=== PATIENT | female | born 1990 | race Caucasian/White ===

== ENCOUNTER 2020-12-24 17:07 | Inpatient (IN) | payer OTHER, SELFPAY ==
[~2020-12-24 17:07] MED LIST: ePHEDrine Sulfate 50 MG/10 ML VIAL ONE
[2020-12-24] MEDS ORDERED: Ibuprofen 800 MG TAB PO PRN (17:40)
[2020-12-24] MEDS ORDERED: Misoprostol 200 MCG TAB PR PRN (17:40)
[2020-12-24] MEDS ORDERED: HYDROcodone/Acetaminophen 5/325 mg Tablet PO PRN (17:40)
[2020-12-24] MEDS ORDERED: Promethazine HCl 25 MG/ML VIAL IM PRN (17:40)
[2020-12-24] MEDS ORDERED: hydrALAZINE 20 MG/ML VIAL SLOW IVP PRN (17:40)
[2020-12-24] MEDS ORDERED: Ondansetron PF 4 MG/2 ML Vial IVP PRN (17:40)
[2020-12-24] MEDS ORDERED: Lidocaine 1% (PF) 30 ML VIAL SC PRN (17:40)
[2020-12-24] MEDS ORDERED: Diphenoxylate HCl/Atropine Tablet PO PRN (17:40)
[2020-12-24] MEDS ORDERED: NS / Oxytocin 40 units/1000ml 1,000 ML IV PRN (17:40)
[2020-12-24] MEDS ORDERED: Carboprost 250 MCG/ML AMP IM PRN (17:40)
[2020-12-24] MEDS ORDERED: Acetaminophen 500 MG TAB PO PRN (17:40)
[2020-12-24] MEDS ORDERED: Methylergonovine 0.2 MG/ML VIAL IM PRN (17:40)
[2020-12-24 17:41] VITALS: BMI 35.5
[2020-12-24] MEDS: Lactated Ringer's 1,000 ML IV SCH (17:50)
[2020-12-24 18:26] LABS: Hemoglobin 11.3 g/dL (12.0-15.5); Mean Corpuscular HGB CONC 34.7 g/dL (32.0-36.0); Mean Corpuscular Hemoglobin 32.4 pg (27.0-33.0); Mean Corpuscular Volume 93.4 fl (81.6-98.3); Mean Platelet Volume 10.6 fl (7.4-10.4); Platelet Count 234 10x3/uL (150-450); RBC Distribution Width 13.1 % (11.5-14.5); Red Blood Cell (RBC) Count 3.49 10x6/uL (3.90-5.03)
[2020-12-24 18:48] LABS: Hep B Surf Ag Non-Reactive S/CO (NonReactive)
[2020-12-24 18:49] LABS: Syphilis Antibody Nonreactive (Nonreactive); Syphilis Antibody Index 0.03 S/CO (<1.00 Non-Reactive)
[2020-12-24] MEDS: Misoprostol 100 MCG TAB VAG SCH ×2 (18:50→22:26)
[2020-12-24 18:58] LABS: HBSAg Index 0.24 S/CO (0-0.99)
[2020-12-25] MEDS: Butorphanol Tartrate 1 MG/ML VIAL SLOW IVP PRN ×2 (00:10→04:11)
[2020-12-25] MEDS: Misoprostol 100 MCG TAB VAG SCH ×4 (04:10→20:51)
[2020-12-25] MEDS ORDERED: Fentanyl 4 mcg/Bup 0.1% Cadd 100 ML ONE ×2 (05:21→12:21)
[2020-12-25] MEDS ORDERED: Promethazine HCl 25 MG/ML VIAL IM PRN ×2 (06:02→19:53)
[2020-12-25] MEDS ORDERED: Acetaminophen 325 MG TAB PO PRN (06:02)
[2020-12-25] MEDS ORDERED: Eucerin (Mineral Oil/Petrolatum,White) 30 gm Jar TOP PRN (06:02)
[2020-12-25] MEDS ORDERED: Naloxone HCl 0.4 mg/ml Vial IVP PRN ×2 (06:02)
[2020-12-25] MEDS ORDERED: ePHEDrine 50 MG/ML VIAL SLOW IVP PRN (06:02)
[2020-12-25] MEDS ORDERED: Ondansetron PF 4 MG/2 ML Vial IVP PRN ×2 (06:02→19:53)
[2020-12-25] MEDS: Lactated Ringer's 1,000 ML IV SCH ×3 (06:02→20:50)
[2020-12-25] MEDS ORDERED: Lactated Ringer's 500 ML IV PRN (06:02)
[2020-12-25] MEDS ORDERED: diphenhydrAMINE 50 MG/ML VIAL IVP PRN (06:02)
[2020-12-25] MEDS ORDERED: Fentanyl 4 mcg/Bupivacaine 0.1% Cassette 100 ML EPIDURAL SCH (06:15)
[2020-12-25] MEDS ORDERED: Communication Order-Pharmacy FS SCH (06:15)
[2020-12-25] MEDS ORDERED: NS w/ Oxytocin 30 units 500 ML ONE ×2 (06:22→16:59)
[2020-12-25] MEDS ORDERED: Benzocaine-Menthol 82.5 ML CAN TOP PRN (19:53)
[2020-12-25] MEDS ORDERED: Lanolin Ointment 7 GM TUBE TOP PRN (19:53)
[2020-12-25] MEDS ORDERED: Zolpidem Tartrate 5 MG TAB PO PRN (19:53)
[2020-12-25] MEDS ORDERED: diphenhydrAMINE 25 MG CAP PO PRN (19:53)
[2020-12-25] MEDS ORDERED: Milk Of Magnesia 30 ML UDCUP PO PRN (19:53)
[2020-12-25] MEDS ORDERED: Preparation H Ointment 28 GM TUBE PR PRN (19:53)
[2020-12-25] MEDS ORDERED: Bisacodyl 10 MG SUPP PR PRN (19:53)
[2020-12-25] MEDS ORDERED: HYDROcodone/Acetaminophen 5/325 mg Tablet PO PRN ×2 (19:53)
[2020-12-25] MEDS ORDERED: hydrALAZINE 20 MG/ML VIAL SLOW IVP PRN (19:53)
[2020-12-25] MEDS ORDERED: NS w/ Oxytocin 30 units 500 ML IV SCH (20:15)
[2020-12-25] MEDS: Docusate Calcium (SURFAK) 240 MG CAP PO SCH (21:29)
[2020-12-25] MEDS: Ibuprofen 800 MG TAB PO SCH (21:30)
[2020-12-26] MEDS: Ibuprofen 800 MG TAB PO SCH ×3 (05:21→21:04)
[2020-12-26] MEDS: Ferrous Sulfate 325 MG TAB PO SCH ×2 (08:17→15:04)
[2020-12-26] MEDS ORDERED: Adacel (T-DAP) 0.5 ML SYRINGE IM ONE (09:00)
[2020-12-26] MEDS: Docusate Calcium (SURFAK) 240 MG CAP PO SCH ×2 (09:02→21:05)
[2020-12-26] MEDS: Prenatal Vitamin 1 TAB PO SCH (09:02)
[2020-12-27] MEDS: Ibuprofen 800 MG TAB PO SCH (06:33)
[2020-12-27 07:38] VITALS: BP 112/67; TEMP 97.8
[2020-12-27] MEDS: Ferrous Sulfate 325 MG TAB PO SCH (08:27)
[2020-12-27] MEDS: Prenatal Vitamin 1 TAB PO SCH (09:04)
[2020-12-27] MEDS: Docusate Calcium (SURFAK) 240 MG CAP PO SCH (09:04)
== END 2020-12-27 13:40 | disposition home or self-care (01) | DRG 807 ==
LOC: CSHLD 17:07 → CSHPP 12-25 20:01
PROVIDERS: ADMIT Student in an Organized Health Care Education/Training Program; ATTEND Student in an Organized Health Care Education/Training Program
PROC: 10D07Z6 Extraction of Products of Conception, Vacuum, Via Natural or Artificial Opening (ICD-10-PCS; principal; 2020-12-25)
PROC: 3E0DXGC Introduction of Other Therapeutic Substance into Mouth and Pharynx, External Approach (ICD-10-PCS; 2020-12-25)
PROC: 0KQM0ZZ Repair Perineum Muscle, Open Approach (ICD-10-PCS; 2020-12-25)
PROC: 10907ZC Drainage of Amniotic Fluid, Therapeutic from Products of Conception, Via Natural or Artificial Opening (ICD-10-PCS; 2020-12-25)
DX: O48.0 Post-term pregnancy (principal); Z37.0 Single live birth; Z3A.40 40 weeks gestation of pregnancy; Z86.16 Personal history of COVID-19; Z87.442 Personal history of urinary calculi; O77.0 Labor and delivery complicated by meconium in amniotic fluid; O63.1 Prolonged second stage (of labor); O75.81 Maternal exhaustion complicating labor and delivery; O76 Abnormality in fetal heart rate and rhythm complicating labor and delivery; O70.1 Second degree perineal laceration during delivery
CPT/HCPCS: 51702; 85027; 86780; 86850; 86900; 86901; 87340; J0595; J2405; J2590